=== PATIENT | male | born 1985 | race Two or more races ===

== ENCOUNTER 2016-11-15 06:52 | Emergency (ER) | payer MEDICARE, MEDICAID ==
[~2016-11-15] VITALS: Ht 160 cm; Wt 36.3 kg
[~2016-11-15 06:52] MED LIST: ENA2.5T PO; METO-281 PO; METO25TA62 PO; POLY335015 PO
[2016-11-15 09:16] LABS: Basophils # (auto) 0 uL; Basophils % (auto) 0.4 % (0.0-2.0); Eosinophils # (auto) 0 uL; Eosinophils % (auto) 0.2 % (0.0-7.0); Hemoglobin 15.4 g/dL (13.5-17.5); Lymphocytes # (auto) 0.7 uL; Mean Corpuscular Hemoglobin 30.3 pg (28.0-32.0); Mean Corpuscular Hgb Conc. 31.6 g/dL (32.0-36.0); Mean Platelet Volume 10.6 fL (7.4-10.4); Monocytes # (auto) 0.3 uL; Monocytes % (auto) 5.3 % (0.0-12.0); Neutrophils # (auto) 4.2 uL; Neutrophils % (auto) 80.1 % (37.0-80.0); Platelet Count (auto) 187 10^3/uL (140-450); Red Cell Distribution Width 13.9 % (11.6-16.0); White Blood Cell 5.2 10^3/uL (4.4-10.8)
[2016-11-15 09:26] LABS: Albumin 4.4 g/dL (3.4-5.0); Anion Gap 9 (5-15); Blood Urea Nitrogen 9 mg/dL (7-18); Carbon Dioxide 30 mmol/L (21-32); Chloride 97 mmol/L (98-107); Glucose 80 mg/dL (74-106); Potassium 4.4 mmol/L (3.5-5.1); Sodium 136 mmol/L (136-145)
[2016-11-15] MEDS ORDERED: SODIUM CHLORIDE 0.9% 1,000 ML IV ONE ×2 (09:30→15:45)
[2016-11-15 09:40] LABS: Alkaline Phosphatase 124 U/L (45-117); Aspartate Aminotransferase 43 U/L (15-37); Bilirubin, Total 0.5 mg/dL (0.2-1.0)
[2016-11-15 09:41] LABS: GFR African American 1578 mL/min; GFR Non-African American 1304 mL/min
[2016-11-15 11:16] LABS: Urine Bilirubin Negative (Negative); Urine Blood Negative /uL (Negative); Urine Color Yellow (Yellow); Urine Glucose Normal (Normal); Urine Mucus FEW (None Seen); Urine Nitrite Negative (Negative); Urine RBC 1 /hpf (0 - 3); Urine Urobilinogen Normal (Negative)
[2016-11-15 11:18] LABS: Urine Ketone 3+ (Negative)
[2016-11-15 14:36] VITALS: BP 107/77
== END 2016-11-15 17:36 | disposition home or self-care (01) ==
LOC: EDBD 06:52 → ER 06:54
DX: R07.89 Other chest pain (principal); G71.0 Muscular dystrophy; I10 Essential (primary) hypertension
CPT/HCPCS: 36415; 80053; 81001; 84443; 84484; 85025; 93005; 96360; 96361; 99285; G0434; J7030